=== PATIENT | female | born 1995 | race Caucasian/White ===

== ENCOUNTER 2017-06-03 17:28 | Emergency (ER) | payer OTHER ==
[~2017-06-03] VITALS: Ht 167.6 cm; Wt 106.4 kg
[~2017-06-03 17:28] MED LIST: ANAPROX DS550 M1 PO; ATARAX,VISTARIL25 MG PO; BENADRYL25 MG PO; JOLESSA1 EACH PO; LORTAB 5-325 M1 EACH PO; MOTRIN600 MG PO; NECON1 EAC1 PO; OMEPRAZOLE20 M2 PO; PEPCID20 MG PO; SUMATRIPTAN SUC25 MG PO; VICODIN 5-3001 EACH PO; ZOFRAN4 MG PO
[2017-06-03 18:37] LABS: HEMATOCRIT 39.3 % (36.0-46.0); HEMOGLOBIN 14.2 G/DL (11.9-15.5); MCH 31.3 PG (29.0-34.0); MCHC 36.1 G/DL (30.0-36.0); MCV 86.8 FL (83-99); PLATELET COUNT 442 K/uL (156-360); RBC DIS.WIDTH-CV 11.5 % (11.8-14.6); RBC DIS.WIDTH-SD 36.4 % (39-53); RED BLOOD COUNT 4.53 M/uL (3.80-5.20); WHITE BLOOD COUNT 6.7 K/uL (4.1-10.2)
[2017-06-03 18:38] LABS: APPEARANCE SL.HAZY ((CLEAR)); BILIRUBIN NEGATIVE; BLOOD NEGATIVE; COLOR YELLOW ((YELLOW)); GLUCOSE (STRIP) NEGATIVE; KETONES NEGATIVE; LEUKOCYTES NEGATIVE; NITRITE NEGATIVE; PROTEIN (STRIP) NEGATIVE; UROBILINOGEN 0.2 MG/DL (0.2-1.0)
[2017-06-03 18:45] LABS: CHLORIDE 107 mEq/L (99-109)
[2017-06-03 18:46] LABS: POTASSIUM 3.7 mEq/L (3.7-5.4); SODIUM 139 mEq/L (136-147)
[2017-06-03 18:49] LABS: BACTERIA RARE /HPF; CALCIUM OXALATE CRYSTALS 1+ /HPF; EPITHELIAL CELLS 1+ /HPF; HYALINE CASTS 0-5 /LPF; MUCUS TRACE /LPF; RED BLOOD CELLS 0-5 /HPF (0-5); UCUL ADDED? NO; WHITE BLOOD CELLS 0-5 /HPF (0-5)
[2017-06-03 18:50] LABS: TOTAL BILIRUBIN 0.4 mg/dL (0.0-1.0)
[2017-06-03 18:53] LABS: AST (GOT) 15 IU/L (2-34)
[2017-06-03 19:01] LABS: QUANTITATIVE HCG < 4.0 MIU/ML
[2017-06-03 19:21] LABS: ALBUMIN 4.4 g/dL (3.2-4.8)
[2017-06-03 19:24] LABS: GLUCOSE 130 mg/dL (70-99); TOTAL PROTEIN 7.3 g/dL (6.4-8.3)
[2017-06-03 19:27] LABS: ALKALINE PHOSPHATASE 77 IU/L (3-129)
[2017-06-03 19:28] LABS: CREATININE 0.8 mg/dL (0.6-1.3); GFR ESTIMATE (CALCULATED) > 59 mL/min/
[2017-06-03 19:29] LABS: UREA NITROGEN (BUN) 11 mg/dL (9-23)
[2017-06-03 19:31] LABS: ALT (GPT) 12 IU/L (3-49)
[2017-06-03 21:35] LABS: LIPASE 43 U/L (1.0-51.0)
[2017-06-03 21:59] LABS: SOURCE SWAB
[2017-06-03] MEDS ORDERED: NAPROSYN500 MG PO (22:55)
[2017-06-03 23:34] VITALS: BP 143/98
== END 2017-06-03 23:36 | disposition home or self-care (01) ==
LOC: EME 17:28
PROVIDERS: Physician Assistant
DX: R10.9 Unspecified abdominal pain (principal); R11.2 Nausea with vomiting, unspecified; F17.200 Nicotine dependence, unspecified, uncomplicated
CPT/HCPCS: 76856; 80053; 81003; 83690; 84702; 85027; 87210; 87491; 87591; 99281; 99285; J0696